=== PATIENT | male | born 1980 | race Caucasian/White ===

== ENCOUNTER 2019-01-08 19:25 | Emergency (ER) | payer OTHER ==
[~2019-01-08] VITALS: Ht 180.3 cm; Wt 97.7 kg
[2019-01-08] MEDS ORDERED: glucagon, human recombinant 1mg kit IV ONE (19:45)
[2019-01-08 20:45] VITALS: BP 136/85
--- NOTE | 2019-01-08 20:46 | NUR ---
taken to gi lab. girlfriend at bedside. pt with stable vs.
[2019-01-08] MEDS ORDERED: MIDAZolam 5mg/5ml vial ONE (20:55)
[2019-01-08] MEDS ORDERED: LIDOcaine Viscous 15ml cup ONE (20:55)
[2019-01-08] MEDS ORDERED: fentaNYL/PF 50MCG/1 ML 2ML syringe ONE (20:55)
[2019-01-08 21:21] VITALS: BP 133/87
[2019-01-08 21:31] VITALS: BP 153/94
[2019-01-08 21:41] VITALS: BP 122/73
[2019-01-08 21:51] VITALS: BP 120/77
--- NOTE | 2019-01-08 22:05 | NUR ---
Pt back from GI lab, procedure successful. Pt arousable to name, VSS, on 2L no C/O pain, N/V. Girlfriend at bedside.
--- NOTE | 2019-01-08 22:22 | NUR ---
No gag reflex at this time.
[2019-01-08 22:38] VITALS: BP 138/78
--- NOTE | 2019-01-08 22:48 | NUR ---
pt gag reflex tested. Gag reflex returned. Pt was able to swallow water. O2 96% on room air. VSS.
== END 2019-01-08 23:09 | disposition home or self-care (01) ==
LOC: ER 19:25
DX: T18.128A Food in esophagus causing other injury, initial encounter (principal); K22.2 Esophageal obstruction; Y92.89 Other specified places as the place of occurrence of the external cause
CPT/HCPCS: 43239; 43247; 96374; 99152; 99285; C1773; J1610; J2250; J3010; J7040; A4620